=== PATIENT | female | born 1960 | race Caucasian/White ===

== ENCOUNTER 2021-04-12 18:58 | Emergency (ER) | payer OTHER, SELFPAY ==
--- NOTE | ~2021-04-12 | CT_ITS ---
EXAMINATION: NONCONTRAST HEAD CT NONCONTRAST MAXILLOFACIAL CT INDICATION INFORMATION: Headache. Facial pain. COMPARISON: MRI 07/13/2018 TECHNIQUE: Separate noncontrast CT examinations of the head and maxillofacial bones were performed. Coronal and sagittal images were created for each examination at the technologist workstation. This CT examination was performed using dose optimization techniques as appropriate, variously including the following: *Automated exposure control *Adjustment of mA and/or kV according to patient size (this includes techniques or standardized protocols for targeted exams where dose is matched to indication/reason for exam; i.e. extremities or head) *Use of iterative reconstruction technique DLP: 1370 mGy-cm FINDINGS: Head: There is no evidence of acute intracranial hemorrhage or territorial infarction. No abnormal mass effect or midline shift is seen. Joyce to white matter differentiation is well preserved. No extra-axial fluid collections are identified. No hydrocephalus. No significant volume loss. Patchy periventricular and deep white matter hypoattenuation is consistent with mild small vessel ischemic changes. No acute soft tissue abnormality. No calvarial fracture. The mastoid air cells are well aerated. Maxillofacial: Right infraorbital soft tissue swelling. No acute maxillofacial fractures are seen. The pterygoid plates are intact. Lamina papyracea are intact. Zygomatic arches are intact. The orbital rims are intact. The nasal bone is intact. The frontal, maxillary, ethmoid, and sphenoid sinuses are well aerated. The uncinate process is normal bilaterally. The infundibula and middle meati are patent. The nasal septum is midline. The mandibular heads are well-seated in the condylar fossa. The orbits demonstrate a normal appearance bilaterally. The globes are intact, and there are no suspicious findings to suggest retrobulbar hemorrhage. CT/CT facial bones w con IMPRESSION: 1. No acute intracranial finding. 2. Right infraorbital soft tissue swelling. No maxillofacial fracture.
[2021-04-12 18:58] VITALS: BP 159/77; PULSE 102; RESP 18; TEMP 37.3; O2SAT 97; BMI 38.9
--- NOTE | 2021-04-12 21:31 | ED_ITS ---
HPI - Skin/Abscess/Foreign Bdy General Chief complaint: Skin/Abscess/Foreign Body Stated complaint: abscess Time Seen by Provider: 04/12/21 21:25 History of Present Illness HPI narrative: Patient is 60-year-old female presents today with having pain and swelling to the right side of the face. No fever no chills. Positive history of having connective tissue disorder. Positive pain localized to that area for the last few days. Getting worse. Patient denies any changes in vision. No history of the same. Positive to take. Patient from home. No coughing or congestion or upper respiratory symptoms. No diaphoresis. Patient has no history of diabetes. Is not on any immunologic agents. No systemic complaints. Related Data Previous Rx's Medication Instructions Recorded clindamycin HCl 300 mg PO QID #30 cap 04/13/21 Allergies Allergy/AdvReac Type Severity Reaction Status Date / Time fentanyl [FENTANYL] Allergy Unknown UNK Verified 04/12/21 19:06 morphine [MORPHINE] Allergy Unknown UNK Verified 04/12/21 19:06 Penicillins [PENICILLINS] Allergy Unknown ANAPHYLAXIS Verified 04/12/21 19:06 PENICILLIN Allergy Unknown Anaphylaxis Uncoded 04/12/21 19:06 Review of Systems Review of Systems: Constitutional: No Weight loss, No Fever, No Chills, No Night Sweats, No Fatigue, No Malaise ENT/Mouth: No Hearing loss, No Ear Pain, No Nasal Congestion, No Sinus Pain, No Hoarseness, No sore throat, No Rhinorrhea, No Swallowing Difficulty Eyes: No Eye Pain, positive Swelling to the right maxillary area, positive Redness, No Foreign Body, No Discharge, No Vision Changes Cardiovascular: No Chest Pain, No SOB, No Dyspnea on Exertion, No Orthopnea, No Edema, No Palpitations Respiratory: No Cough, No Sputum, No Wheezing, No Smoke Exposure, No Dyspnea Gastrointestinal: No Nausea, No Vomiting, No Diarrhea, No Constipation, No abdominal Pain, No Hematochezia, No Melena Genitourinary: no irregular bleeding, No Dysuria, No Urinary Frequency, No Hematuria, No Urinary Incontinence, No Urgency, No Flank Pain, No Urinary Flow Changes, No Hesitancy Musculoskeletal: No joint pain, No Myalgias, No Joint Swelling Skin: No Skin Lesions, No rash Neuro: No Weakness, No Numbness, No Paresthesias, No Loss of Consciousness, No Dizziness, No Headache Psych: No Anxiety/Panic, No Depression, No SI/HI/AH/VH, No Social Issues, Heme/Lymph: No Bruising, No Bleeding,No Lymphadenopathy Endocrine: No Polyuria, No Polydipsia, No Temperature Intolerance [facility] Past Medical History Medical History Amyloidosis Anxiety Asthma Depression Diverticulitis GERD (gastroesophageal reflux disease) Hypothyroid Social History Social History Advance Directives: No Advance Directives Information Provided: Yes Patient : No Physical Exam Vital Signs: Vital Signs: Last Vital Signs Temp 99.5 F 04/12/21 22:34 Pulse 81 04/12/21 22:34 Resp 18 04/12/21 22:34 BP 156/76 H 04/12/21 22:34 Pulse Ox 97 04/12/21 22:34 Body Mass Index 38.9 Appearance: Alert. Oriented X3. No acute distress. Eyes: Pupils equal, round and reactive to light. ENT: Pharynx normal. Positive swelling to the right maxillary area. There is warmth to touch. There is no abscess that was palpable. Neck: Normal inspection. Neck supple. No lymph nodes noted. No crepitus CVS: Normal heart rate and rhythm. Pulses normal. Normal S1 and S2 Respiratory: No respiratory distress. Breath sounds normal. No Wheezing. No rales Abdomen: Soft and nontender. No rigidity. No distention. good BS x4 Skin: Skin warm and dry. Normal skin color. Normal skin turgor. Extremities: No lower extremity edema. Neurovascular intact to all extremities. No Lacerations. No Rash Neuro: Oriented X 3. No motor deficit. No sensory deficit. Moving all extermities. No slurred speech MDM - Skin/Abscess/Foreign Bdy MDM Narrative Medical decision making narrative: Patient's white count was 13. Electrolytes unremarkable. CT scan of the head was negative for any evidence of bleeding. CT scan of the face showed no fracture. No abscess. There is an area of swelling over the right maxillary area. Consistent with cellulitis. Patient is started on a dose of clindamycin. Patient's lactate was normal. There is no evidence for sepsis. Patient was offered admission given the location of the inflammation. Patient did not want to stay in hospital. Wants to go home. Understood the risk of infection getting worse. Wants to take oral antibiotics for now. Patient states that she will definitely come back if there is any fever that develops. Currently in stable condition with discharge patient home. Any signs of worsening infection return to the emergency department immediately Lab Data Result diagrams: 04/12/21 22:07 04/12/21 22:07 Labs: Lab Results 04/12/21 04/12/21 04/12/21 Range/Units 22:07 22:07 22:07 WBC 13.4 H (4.8-10.8) X10*3/uL RBC 4.78 (4.20-5.50) X10*6/uL Hgb 14.4 (12.0-16.0) g/dl Hct 43.3 (37-47) % MCV 90.6 (80-98) fL MCH 30.1 (27.0-33.0) pg MCHC 33.3 (31.0-35.0) g/dl RDW 13.5 (11.0-16.0) % Plt Count 199 (160-400) X10*3/uL MPV 11.3 (9.4-12.3) fL Immature Gran % (Auto) 0.4 (0.0-0.4) % Neut % (Auto) 80.3 H (45-73) % Lymph % (Auto) 11.5 L (20-40) % [place] % (Auto) 7.1 (2-11) % Eos % (Auto) 0.4 (0-4) % Baso % (Auto) 0.3 (0-2) % Lymph # (Auto) 1.5 (1.2-4.9) X10*3/uL [place] # (Auto) 1.0 (0.1-1.2) X10*3/uL Eos # (Auto) 0.1 (0.0-0.4) X10*3/uL Baso # (Auto) 0.0 (0.0-0.2) X10*3/uL Abs Immat Gran (auto) 0.05 H (0.00-0.03) X10*3/uL Absolute Neuts (auto) 10.7 H (2.0-8.3) X10*3/uL Absolute Nucleated RBC 0.000 (0.0-0.012) X10*3/uL Nucleated RBC % (auto) 0.0 (0.0-0.2) /100WBC Sodium 137 (135-145) mmol/L Potassium 4.5 (3.3-5.1) mmol/L Chloride 101 (96-108) mmol/L Carbon Dioxide 23 (22-29) mmol/L Anion Gap 18 (12-20) BUN 13 (9-16) mg/dL Creatinine 0.94 (0.5-1.4) mg/dL Estim Creat Clear Calc 75.1 Estimated GFR > 60 Random Glucose 127 H (60-115) mg/dL Lactic Acid 1.1 (0.5-2.0) mmol/L Calcium 10.4 H (8.4-10.2) mg/dL Discharge Plan Discharge Clinical Impression: Cellulitis Patient Disposition: Home, Self-Care Instructions: Cellulitis (ED) Additional Instructions: Any fever. Any dizziness nausea vomiting if you change your mind please come back to the emergency department to be admitted. Prescriptions: New clindamycin HCl 300 mg capsule 300 mg PO QID Qty: 30 RF: 0 Referrals: Eris Santoyo MD [Primary Care Provider] - 2 days (Any fever. Worsening condition return to the emergency department immediately. If he feel well still you must follow-up with your doctor. Your infection is in your face. It is very close to her brain. If there is any worsening condition please come back)
[2021-04-12] MEDS: Ketorolac Tromethamine 15 MG/ML VIAL IV (22:08)
[2021-04-12] MEDS: Metoclopramide HCl 10 MG/2 ML VIAL IVPUSH (22:09)
[2021-04-12] MEDS: diphenhydrAMINE HCL 50 MG/ML VIAL 25 MG IVPUSH (22:09)
[2021-04-12 22:16] LABS: MANUAL DIFF FLAG NO
[2021-04-12 22:17] LABS: Basophils Percent Auto 0.3 % (0-2); Eosinophils Absolute Auto 0.1 X10*3/uL (0.0-0.4); Eosinophils Percent Auto 0.4 % (0-4); Hematocrit 43.3 % (37-47); Hemoglobin 14.4 g/dl (12.0-16.0); Imm Gran Abs Auto 0.05 X10*3/uL (0.00-0.03); Imm Gran Pct Auto 0.4 % (0.0-0.4); Lymphocytes Absolute Auto 1.5 X10*3/uL (1.2-4.9); Lymphocytes Percent Auto 11.5 % (20-40); Mean Corpuscular HGB Conc 33.3 g/dl (31.0-35.0); Mean Corpuscular Hemoglobin 30.1 pg (27.0-33.0); Mean Corpuscular Volume 90.6 fL (80-98); Mean Platelet Volume 11.3 fL (9.4-12.3); Monocytes Percent Auto 7.1 % (2-11); Neutrophils Absolute Auto 10.7 X10*3/uL (2.0-8.3); Neutrophils Percent Auto 80.3 % (45-73); Platelet Count 199 X10*3/uL (160-400); Red Blood Count 4.78 X10*6/uL (4.20-5.50); Red Cell Distribution Width 13.5 % (11.0-16.0); White Blood Count 13.4 X10*3/uL (4.8-10.8)
[2021-04-12 22:34] VITALS: BP 156/76; PULSE 81; RESP 18; TEMP 37.5; O2SAT 97
[2021-04-12 22:38] LABS: Lactic Acid 1.1 mmol/L (0.5-2.0)
[2021-04-12 22:42] LABS: Anion Gap 18 (12-20); Blood Urea Nitrogen 13 mg/dL (9-16); Calcium 10.4 mg/dL (8.4-10.2); Carbon Dioxide 23 mmol/L (22-29); Chloride 101 mmol/L (96-108); Creatinine Clr Calc Pharmacy 75.1; Estimated Glomerular Filt Rate > 60; Glucose Random 127 mg/dL (60-115); Potassium 4.5 mmol/L (3.3-5.1); Sodium 137 mmol/L (135-145)
[2021-04-13] VITALS: PULSE 84; RESP 18
[2021-04-13] MEDS: iohexoL 350 MG/ML 100 ML INFUS..BTL 85 ML IV (01:08)
[2021-04-13] MEDS: Clindamycin Phosphate/D5W 600 MG/50 ML PIGGYBACK 100 MG IV (01:09)
[2021-04-13 02:00] VITALS: BP 150/71; RESP 18
== END 2021-04-13 02:06 | disposition home or self-care (01) ==
PROVIDERS: Emergency Provider Emergency Medicine Emergency Medical Services; PCP Internal Medicine
DX: L03.211 Cellulitis of face (principal); G44.309 Post-traumatic headache, unspecified, not intractable; Z79.899 Other long term (current) drug therapy
CPT/HCPCS: 36415; 70450; 70487; 80048; 83605; 85025; 87040; 87147; 87205; 96365; 96375; 99284; J1200; J1885; J2765; Q9967

== ENCOUNTER 2021-04-13 08:32 | Emergency (ER) | payer OTHER, SELFPAY ==
[2021-04-13 08:47] VITALS: BP 158/91; PULSE 80; RESP 16; TEMP 36.9; O2SAT 96; BMI 38.7
--- NOTE | 2021-04-13 08:50 | ED.GENADULT ---
HPI - General Adult General Chief complaint: Skin/Abscess/Foreign Body Stated complaint: cellulitis Time Seen by Provider: 04/13/21 08:47 Source: patient Mode of arrival: ambulatory Limitations: no limitations History of Present Illness HPI narrative: 60 y/o female returns back to the ER with concerns of worsening right facial cellulitis. She was seen here in the ED last night, diagnosed with cellulitis and started on clindamycin. She had a CT scan of her head and face that only showed some soft tissue swelling. She was discharged at 2am. When she woke up ta 7am she noticed her face was slightly more swollen and red so she decided to come back to the ER for re-evaluation. On the way here, the swelling and redness already improved. She denies fevers, chills. She has ongoing right lower dental pain and is in the process of getting a dental evaluation for extraction of rotten tooth. MD complaint: cellulitis Onset (ago): hour(s) Location: face and mouth Quality: aching Pain Consistency: intermittent Relieving factors: medication Exacerbating factors: none Associated symptoms: denies other symptoms Treatments prior to arrival: NSAID Related Data Previous Rx's Medication Instructions Recorded cefdinir 300 mg PO BID #20 cap 04/13/21 clindamycin HCl 300 mg PO QID #30 cap 04/13/21 Allergies Allergy/AdvReac Type Severity Reaction Status Date / Time fentanyl [FENTANYL] Allergy Unknown UNK Verified 04/12/21 19:06 morphine [MORPHINE] Allergy Unknown UNK Verified 04/12/21 19:06 Penicillins [PENICILLINS] Allergy Unknown ANAPHYLAXIS Verified 04/12/21 19:06 PENICILLIN Allergy Unknown Anaphylaxis Uncoded 04/12/21 19:06 Review of Systems Review of Systems: Constitutional: No Fever, No Chills ENT/Mouth: No sore throat, No Rhinorrhea, No Swallowing Difficulty, +dental pain Eyes: No Eye Pain, + Swelling, No Redness Cardiovascular: No Chest Pain, No SOB Respiratory: No Cough, No Sputum Gastrointestinal: No Nausea, No Vomiting Skin: No Skin Lesions, No rash Neuro: No Weakness, No Numbness, No Dizziness, + Headache (improving) Psych: + Anxiety/Panic PMFSH Past Medical History Attestation statement: The following information was validated with the patient. Medical History Amyloidosis Anxiety Asthma Depression Diverticulitis GERD (gastroesophageal reflux disease) Hypothyroid Social History Social History Alcohol intake: never Patient Tobacco Use Status: Never used Tobacco Use of substances other than those prescribed or required for medical reasons: No Advance Directives: Yes Advance Directives Information Provided: Yes Advance Directives on File: No Physical Exam Vital Signs: Vital Signs: Last Vital Signs Temp 98.5 F 04/13/21 08:47 Pulse 80 04/13/21 08:47 Resp 16 04/13/21 08:47 BP 158/91 H 04/13/21 08:47 Pulse Ox 96 04/13/21 08:47 Body Mass Index 38.7 Appearance: Alert. Oriented X3. No acute distress. Eyes: Pupils equal, round and reactive to light. Moderate periorbital edema with mild erythema under the eye. EOMI without discomfort on eye movement. ENT: Pharynx normal. Poor dentition, right lower molar with decay and tenderness, no fluctuance or drainage. no trismus Neck: Normal inspection. Neck supple. CVS: Normal heart rate and rhythm. Pulses normal. Respiratory: No respiratory distress. Breath sounds normal. \ Skin: Skin warm and dry. Normal skin color. Normal skin turgor. No rashes. Neuro: Oriented X 3. No motor deficit. No sensory deficit. CN II-XII grossly intact Course Course Course Narrative: 60 y/o female presenting for re-evaluation of facial cellulitis. Had CT scan 9 hours ago. Images on her cell phone were reviewed. Her facial swelling and erythema are improving. Another photo was taken for documentation and trending. Dose of clindamycin was given in the ER. Will plan to add cefdinir for double coverage of preseptal cellulitis. Patient's PCN allergy was rash as an . She is going to make an appointment with a dentist today. She is stable for discharge and will f/u with her PCP as soon as possible. Discharge Plan Discharge Clinical Impression: Cellulitis Qualifiers: Site of cellulitis: face Qualified Code(s): L03.211 - Cellulitis of face Patient Disposition: Home, Self-Care Instructions: Periorbital Cellulitis in Adults (ED) Additional Instructions: Your cellulitis is improving. You were given another dose of Clindamycin in the ER today - take your next dose in 6 hours. Start taking cefdinir this morning. This was sent to your pharmacy. If you notice worsening swelling, redness or pain come back to the ER right away. Follow up with your doctor as soon as possible. Prescriptions: New cefdinir 300 mg capsule 300 mg PO BID Qty: 20 RF: 0 No Action clindamycin HCl 300 mg capsule 300 mg PO QID Qty: 30 RF: 0 Discharge Date/Time: 04/13/21 09:12
--- NOTE | 2021-04-13 09:11 | PC.NURSE ---
DIscharge instructions given to patient who verbalized understanding and denies any questions. Pt is ambulatory to exit in no distress
== END 2021-04-13 09:12 | disposition home or self-care (01) ==
PROVIDERS: Emergency Provider Emergency Medicine; PCP Internal Medicine
DX: L03.211 Cellulitis of face (principal); K08.89 Other specified disorders of teeth and supporting structures
CPT/HCPCS: 99283; 99284

== ENCOUNTER 2022-11-26 12:36 | Outpatient (REF) | payer MEDICARE, SELFPAY ==
--- NOTE | ~2022-11-26 | XR_ITS ---
EXAMINATION: XR CHEST CLINICAL INFORMATION: Wheezing COMPARISON: None TECHNIQUE: 2 views of the chest were obtained. FINDINGS: There is mild coarsening bronchiolar markings which could be related to asthma bronchitis. There is no hyperinflation or airspace consolidation or groundglass opacity. The costophrenic sulci are clear. The heart is normal in size. The vascularity is normal. The hilar and mediastinal contours and bony structures are unremarkable. XR/XR chest 2V IMPRESSION: 1. Nonspecific mild coarsening bronchiolar markings which could be related to asthma or bronchitis. 2. No hyperinflation, airspace consolidation, or effusion.
[2022-11-26 12:59] LABS: MANUAL DIFF FLAG NO
[2022-11-26 13:26] LABS: Basophils Percent Auto 0.3 % (0-2); Eosinophils Absolute Auto 0.2 X10*3/uL (0.0-0.4); Eosinophils Percent Auto 2.4 % (0-4); Hematocrit 39.2 % (37.0-47.0); Hemoglobin 12.9 g/dl (12.0-16.0); Imm Gran Abs Auto 0.02 X10*3/uL (0.00-0.03); Imm Gran Pct Auto 0.3 % (0.0-0.4); Lymphocytes Absolute Auto 1.3 X10*3/uL (1.2-4.9); Lymphocytes Percent Auto 20.1 % (20-40); Mean Corpuscular HGB Conc 32.9 g/dl (31.0-35.0); Mean Corpuscular Hemoglobin 29.5 pg (27.0-33.0); Mean Corpuscular Volume 89.7 fL (80.0-98.0); Mean Platelet Volume 11.8 fL (9.4-12.3); Monocytes Absolute Auto 0.4 X10*3/uL (0.1-1.2); Monocytes Percent Auto 6.1 % (2-11); Neutrophils Absolute Auto 4.4 x10*3/uL (2.0-8.3); Neutrophils Percent Auto 70.8 % (45-73); Platelet Count 130 X10*3/uL (160-400); Red Blood Count 4.37 X10*6/uL (4.20-5.50); White Blood Count 6.2 X10*3/uL (4.8-10.8)
[2022-11-26 14:12] LABS: Alanine Aminotransferase 76 U/L (0-31); Albumin Level 4.4 g/dL (3.5-5.0); Alkaline Phosphatase 148 U/L (39-117); Anion Gap 12 (12-20); Aspartate Amino Transferase 53 U/L (5-31); Bilirubin Total 0.4 mg/dL (0.0-1.0); Blood Urea Nitrogen 14 mg/dL (9-16); C Reactive Protein 0.78 mg/dL (< or = 0.50); Calcium 10.1 mg/dL (8.4-10.2); Carbon Dioxide 30 mmol/L (22-29); Chloride 104 mmol/L (96-108); Cholesterol 281 mg/dL; Estimated Glomerular Filt Rate 57; Glucose Fasting 106 mg/dL (60-99); HDL Cholesterol 45 mg/dL; LDL Cholesterol Calculated 201 mg/dl; Potassium 5.6 mmol/L (3.3-5.1); Sodium 140 mmol/L (135-145); Total Protein 7.4 g/dL (6.5-8.0); Triglycerides 178 mg/dL
[2022-11-26 14:22] LABS: Estimated Average Glucose 126 mg/dL
[2022-11-26 14:30] LABS: Free T4 (Free Thyroxine) 0.78 ng/dL (0.71-1.85); Thyroid Stimulating Hormone 2.95 uIU/mL (0.32-4.0)
[2022-11-28 12:24] LABS: Anti Nuclear Antibody Pattern Nuclear, Homogeneous; Anti Nuclear Antibody Screen POSITIVE (NEGATIVE)
== END 2022-11-26 12:37 | disposition home or self-care (01) ==
LOC: HO.XRAY 12:36
PROVIDERS: PCP Internal Medicine; Visit Provider Internal Medicine
DX: Z00.00 Encounter for general adult medical examination without abnormal findings (principal); E03.9 Hypothyroidism, unspecified
CPT/HCPCS: 36415; 71046; 80053; 80061; 83036; 84439; 84443; 85025; 86038; 86039; 86140

== ENCOUNTER 2023-01-02 12:12 | Outpatient (REF) | payer MEDICARE, SELFPAY ==
[2023-01-02 13:50] LABS: Alanine Aminotransferase 59 U/L (0-31); Albumin Level 4.4 g/dL (3.5-5.0); Alkaline Phosphatase 139 U/L (39-117); Aspartate Amino Transferase 48 U/L (5-31); Bilirubin Direct < 0.2 mg/dL (0.0-0.5); Bilirubin Total 0.3 mg/dL (0.0-1.0); Total Protein 7.2 g/dL (6.5-8.0)
== END 2023-01-02 12:13 | disposition home or self-care (01) ==
LOC: HO.10HDL 12:12
PROVIDERS: Visit Provider Internal Medicine
DX: R79.89 Other specified abnormal findings of blood chemistry (principal)
CPT/HCPCS: 36415; 80076

== ENCOUNTER 2023-11-05 12:28 | Outpatient (REF) | payer MEDICARE, MEDICAID, SELFPAY ==
[2023-11-05 13:56] LABS: Alanine Aminotransferase 48 U/L (0-31); Albumin Level 4.5 g/dL (3.5-5.0); Alkaline Phosphatase 130 U/L (39-117); Anion Gap 12 (12-20); Aspartate Amino Transferase 37 U/L (5-31); Bilirubin Total 0.4 mg/dL (0.0-1.0); Blood Urea Nitrogen 11 mg/dL (9-16); Calcium 9.9 mg/dL (8.4-10.2); Carbon Dioxide 27 mmol/L (22-29); Chloride 109 mmol/L (96-108); Cholesterol 206 mg/dL (<200); Estimated Glomerular Filt Rate 50; Glucose Random 100 mg/dL (60-115); HDL Cholesterol 50 mg/dL (>40); LDL Cholesterol Calculated 128 mg/dL (<100); Potassium 5.4 mmol/L (3.3-5.1); Sodium 143 mmol/L (135-145); Total Protein 7.6 g/dL (6.5-8.0); Triglycerides 144 mg/dL (<150)
[2023-11-05 14:05] LABS: Vitamin B12 778 pg/mL (200-900)
[2023-11-05 14:18] LABS: Free T4 (Free Thyroxine) 0.81 ng/dL (0.71-1.85); Thyroid Stimulating Hormone 4.92 uIU/mL (0.32-4.0)
[2023-11-05 14:45] LABS: Appearance Urine Clear; Color Urine Yellow; Glucose Urine UA Negative (Negative); Leukocyte Esterase Urine Moderate (2+) (Negative); Nitrite Urine Negative (Negative); Specific Gravity - Urine 1.025 (1.005-1.025); UMIC TRIGGER UACC YES; Urine Blood Negative (Negative); Urine Ketones Negative (Negative); Urine Protein Negative (Neg-Trace)
[2023-11-05 14:51] LABS: Bacteria Urine None Seen (None Seen); Hyaline Casts Urine 0-2 /LPF (0-2); RBC Urine 0-2 /HPF (0-2); UACC Culture Trigger YES
== END 2023-11-05 12:29 | disposition home or self-care (01) ==
LOC: HO.LAB 12:28
PROVIDERS: PCP Internal Medicine; Visit Provider Internal Medicine
DX: E78.00 Pure hypercholesterolemia, unspecified (principal); R79.89 Other specified abnormal findings of blood chemistry; E03.9 Hypothyroidism, unspecified; R82.90 Unspecified abnormal findings in urine
CPT/HCPCS: 36415; 80053; 80061; 81001; 81003; 82607; 84439; 84443; 87086

== ENCOUNTER 2023-12-08 14:00 | Outpatient (REF) | payer MEDICARE, MEDICAID, SELFPAY ==
[2023-12-08 14:12] LABS: MANUAL DIFF FLAG NO
[2023-12-08 14:17] LABS: Basophils Percent Auto 0.3 % (0-2); Eosinophils Absolute Auto 0.2 X10*3/uL (0.0-0.4); Eosinophils Percent Auto 2.2 % (0-4); Hematocrit 42.1 % (37.0-47.0); Hemoglobin 13.8 g/dl (12.0-16.0); Imm Gran Abs Auto 0.02 X10*3/uL (0.00-0.03); Imm Gran Pct Auto 0.3 % (0.0-0.4); Lymphocytes Absolute Auto 1.6 X10*3/uL (1.2-4.9); Lymphocytes Percent Auto 23.6 % (20-40); Mean Corpuscular HGB Conc 32.8 g/dl (31.0-35.0); Mean Corpuscular Hemoglobin 29.7 pg (27.0-33.0); Mean Corpuscular Volume 90.7 fL (80.0-98.0); Monocytes Absolute Auto 0.4 X10*3/uL (0.1-1.2); Monocytes Percent Auto 6.5 % (2-11); Neutrophils Absolute Auto 4.6 x10*3/uL (2.0-8.3); Neutrophils Percent Auto 67.1 % (45-73); Platelet Count 160 X10*3/uL (160-400); Red Blood Count 4.64 X10*6/uL (4.20-5.50); Red Cell Distribution Width 13.1 % (11.0-16.0); White Blood Count 6.8 X10*3/uL (4.8-10.8)
[2023-12-08 14:22] LABS: D Dimer High Sensitivity < 150 NG/ML
[2023-12-08 15:35] LABS: B Type Natriuretic Peptide 26 pg/mL (<100)
[2023-12-08 15:37] LABS: Alanine Aminotransferase 58 U/L (0-31); Albumin Level 4.7 g/dL (3.5-5.0); Alkaline Phosphatase 135 U/L (39-117); Anion Gap 14 (12-20); Aspartate Amino Transferase 40 U/L (5-31); Bilirubin Total 0.5 mg/dL (0.0-1.0); Blood Urea Nitrogen 14 mg/dL (9-16); C Reactive Protein 0.52 mg/dL (< or = 0.50); Calcium 10.2 mg/dL (8.4-10.2); Carbon Dioxide 29 mmol/L (22-29); Chloride 103 mmol/L (96-108); Estimated Glomerular Filt Rate 52; Glucose Random 87 mg/dL (60-115); Lipase 27 U/L (8-78); Potassium 4.3 mmol/L (3.3-5.1); Sodium 142 mmol/L (135-145); Total Protein 8.3 g/dL (6.5-8.0)
[2023-12-08 15:40] LABS: Free T4 (Free Thyroxine) 0.91 ng/dL (0.71-1.85); Thyroid Stimulating Hormone 1.82 uIU/mL (0.32-4.0)
== END 2023-12-08 14:01 | disposition home or self-care (01) ==
LOC: HO.LAB 14:00
PROVIDERS: PCP Internal Medicine; Visit Provider Internal Medicine
DX: R06.02 Shortness of breath (principal); E03.9 Hypothyroidism, unspecified; R10.9 Unspecified abdominal pain
CPT/HCPCS: 36415; 80053; 82550; 83690; 83880; 84439; 84443; 85025; 85379; 86140

== ENCOUNTER 2024-01-01 13:51 | Outpatient (REF) | payer MEDICARE, MEDICAID, SELFPAY ==
--- NOTE | ~2024-01-01 | US_ITS ---
EXAMINATION: US PELVIS CLINICAL INFORMATION: Right ovarian cyst. COMPARISON: None available. TECHNIQUE: Ultrasound of the pelvis is performed using both transabdominal and transvaginal transducers along with Doppler. Transvaginal imaging is performed due to inadequate visualization transabdominally. FINDINGS: Uterus: The uterus is retroverted and measures 5.2 x 3.3 x 4.2 cm. The double wall endometrial thickness is 2 mm. The uterus is smooth in contour. There are scattered myometrial calcifications, possibly related to minimal fibroids or a sequela of prior inflammation/infection. No visible fibroid. Adnexa: Both ovaries are visualized. There is normal color flow to the adnexa. There is no ovarian torsion. There is no pelvic ascites or fluid collection. Right ovary measures 6.8 x 5.2 x 3.4 cm, volume 63.0 mL. The right ovary contains 3.7 x 3.3 x 3.9 cm, 1.8 x 1.2 x 2.1 cm and 1.4 x 1.3 x 1.2 cm adjacent cysts versus an aggregate complex cyst. The second of these cystic components contains a possible 3 mm mural nodule (17/41). Left ovary measures 1.9 x 1.3 x 1.1 cm, volume 1.4 mL. US/US pelvic and transvaginal IMPRESSION: Multiple adjacent simple right ovarian cysts are seen versus an aggregate complex cyst, with septations and a possible mural nodule. As a precaution, repeat pelvic ultrasound examination is recommended in 6-12 weeks to ensure regression/resolution and exclude the possibility of underlying neoplasm.
== END 2024-01-01 13:52 | disposition home or self-care (01) ==
LOC: HO.US 13:51
PROVIDERS: PCP Internal Medicine; Visit Provider Internal Medicine
DX: N83.291 Other ovarian cyst, right side (principal)
CPT/HCPCS: 76830; 76856

== ENCOUNTER 2024-02-16 14:58 | Outpatient (AMB) | payer MEDICARE, MEDICAID, SELFPAY ==
--- NOTE | 2024-02-16 15:00 | MHC.OFFVIS ---
Intake Vital Signs 02/16/24 15:03 Height 5 ft 5 in Weight 240 lb 4.862 oz BMI 40.0 BP 180/66 H Blood Pressure Location Lt brachial Position Sitting Pulse 96 Intake Visit Reasons: CURER ACID DRUM/Dr. Santoyo/Shortness of breath Intake Note: NPV w/ EKG Underwriting Support Specialist Required: No Accompanied by: Self / Same As Patient Allergies fentanyl [FENTANYL] Allergy (Unknown, Verified 02/16/24 15:03) UNK morphine [MORPHINE] Allergy (Unknown, Verified 02/16/24 15:03) UNK Penicillins [PENICILLINS] Allergy (Unknown, Verified 02/16/24 15:03) ANAPHYLAXIS PENICILLIN Allergy (Unknown, Uncoded 02/16/24 15:03) Anaphylaxis Medication List - Last Reconciled 02/16/24 by Clark Dumont MD alprazolam 1 mg PO DAILY PRN gabapentin 100 mg PO TID levothyroxine 100 mcg PO DAILY meloxicam 15 mg PO DAILY pravastatin 20 mg PO DAILY sertraline 100 mg PO BID HPI HPI Comments History of Present Illness Details Pamela Mayo is here for consultation regarding shortness of breath. She states that she has been short of breath for quite some time, going back years but lately it has been much worse than usual. Even when she walks very short distances, just a few steps, she can feel short of breath. Sometimes she feels as though she is wheezing. Even bending down, makes her short of breath. No anginal type chest pains. No known coronary disease myocardial infarction. 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 Otherwise, she does have a history of asthma. [facility] Medical History Amyloidosis Anxiety Asthma Depression Diverticulitis GERD (gastroesophageal reflux disease) Hypothyroid Family History (Updated 02/16/24 @ 15:17 by Clark Dumont MD) Mother History of heart attack Brother Pacemaker Social History Alcohol intake: never Patient Tobacco Use Status: Never used Tobacco Review of Systems Const Denies chills, Denies daytime sleepiness, Denies fatigue, Denies fever(s), Denies frequent falls, Denies night sweats, Denies snoring, Denies weakness, Denies weight gain and Denies weight loss Eyes Denies loss of vision ENT Denies dizziness and Denies hearing loss Card Denies chest pain, Denies chest pain with activity, Denies syncope, Denies rapid heart rate, Denies edema, Denies claudication, Denies leg edema, Denies lightheadedness, Denies palpitations, Reports dyspnea, Reports dyspnea on exertion and Reports orthopnea Resp Denies cough, Denies excessive phlegm production, Reports dyspnea, Reports dyspnea on exertion, Denies snoring and Denies wheezing GI Denies abdominal pain, Denies hematochezia, Denies change in bowel habits, Denies change in stool character, Denies heartburn, Denies nausea and Denies vomiting Denies hematuria, Denies urinary frequency and Denies dysuria Musc Denies arthralgias, Denies muscle weakness, Denies numbness and Denies tingling Skin/Breast Denies nail changes and Denies rash Neuro Denies Abnormal speech present, Denies dizziness, Denies syncope, Denies frequent falls, Denies loss of vision, Denies memory loss, Denies numbness, Denies tingling and Denies weakness Psych Denies depression and Denies memory loss Endo Denies fatigue and Denies palpitations Aller/Immun Denies wheezing Physical Exam Vital Signs: Last Vital Signs Pulse 96 02/16/24 15:03 BP 180/66 H 02/16/24 15:03 BMI result Body Mass Index 40.0 Const General: comfortable and no acute distress Orientation/consciousness: patient oriented x3 HEENT Other: Unremarkable Head: Yes normal to inspection Neck Neck: Yes normal visual inspection Chest Chest palpation & inspection: normal inspection of the chest Resp Auscultation: clear to auscultation bilaterally Cardio Palpation: normal PMI Heart sounds: S1 normal heart sound present, S2 normal heart sound present, no gallops, no murmurs and no rubs GI Palpation (GI): Soft to palpation Back/Spine/Pelvis Other: unremarkable Skin General skin exam: no rashes or lesions noted Neuro General: patient oriented x3 Speech: No Abnormal speech present Extrem General: Yes normal to inspection Psych Mental Status: mental status grossly normal Office Procedures EKG Details: EKG with sinus rhythm at 96/Min; no significant ST-T changes and otherwise unremarkable[place] [id number], Complete Assessment & Plan Assessment & Plan (1) Shortness of breath: Code(s): R06.02 - Shortness of breath (2) Elevated blood pressure reading without diagnosis of hypertension: Code(s): R03.0 - Elevated blood-pressure reading, without diagnosis of hypertension Plan On clinical exam, no obvious murmurs but difficult to assess because of the way she is breathing/over breathing. She appears short of breath just sitting in chair but not in distress. A recent cardiac BNP is only 26, well within normal limits. Overall, symptoms possibly more pulmonary than cardiac but need to have a comprehensive assessment. We will start with an echocardiogram, chest CT scan and PFTs. May review the above and then plan further care. Blood pressure is high today but she absolutely denies any history of hypertension. She states his generally well within normal range. Advised to do some home blood pressures and get back to us in the next few days. If it is still high, may need meds. She agrees with that. Orders: Orders CA echo transthoracic complete Today R06.02 - Shortness of breath CT chest wo IV con Today R06.02 - Shortness of breath PFT pulmonary function test Today R06.02 - Shortness of breath Coding Level of Care Code New Pt Level 4 (12512) Diagnoses Shortness of breath R06.02 Elevated blood pressure reading without diagnosis of hypertension R03.0 CPT Codes EKG - CPT: 52462-[id number], Complete ([id number])
[2024-02-16 15:03] VITALS: BP 180/66; PULSE 96; BMI 40.0
== END 2024-02-16 15:31 | disposition home or self-care (01) ==
PROVIDERS: PCP Internal Medicine; Visit Provider Internal Medicine
DX: R06.02 Shortness of breath (principal); R03.0 Elevated blood-pressure reading, without diagnosis of hypertension
CPT/HCPCS: 93010; 99204

== ENCOUNTER → 2024-02-16 14:58 | Outpatient (BNVA) | payer MEDICARE, OTHER, SELFPAY | PROVIDERS: PCP Internal Medicine; Visit Provider Internal Medicine | DX: R06.02 Shortness of breath (principal); R03.0 Elevated blood-pressure reading, without diagnosis of hypertension; J45.909 Unspecified asthma, uncomplicated | CPT/HCPCS: 93005; 99202 ==

== ENCOUNTER 2024-02-19 10:47 | Outpatient (REF) | payer MEDICARE, MEDICAID, SELFPAY ==
[2024-02-19 10:42] VITALS: PULSE 84; RESP 16; O2SAT 98
--- NOTE | 2024-02-19 16:37 | PFT_ITS ---
Indication: Dyspnea Spirometry [FEV1 to FVC 79%; FEV1 2.05 L; FVC 2.6 L. No significant response to bronchodilators noted. Maximum voluntary ventilation 63% predicted] Lung Volumes [Total lung capacity 76% predicted; expiratory reserve volume 33% predicted] Diffusion Capacity [Diffusing capacity 100% predicted] Comparisons [None] Interpretation [No obstructive ventilatory defects. No significant response to bronchodilators noted. There is a mild decrease in maximum voluntary ventilation secondary to likely deconditioning. There has a mild restrictive ventilatory defect likely due to an elevated BMI. Can not rule out occult interstitial lung conditions. Diffusing capacity is completely normal. Clinical correlation warranted. MTDD
== END 2024-02-19 10:48 | disposition home or self-care (01) ==
LOC: HO.RESP 10:47
PROVIDERS: PCP Internal Medicine; Visit Provider Internal Medicine
DX: R06.02 Shortness of breath (principal)
CPT/HCPCS: 94010; 94640; 94727; 94729

== ENCOUNTER → 2024-02-19 16:37 | Outpatient (BNV) | payer MEDICARE, MEDICAID, SELFPAY | PROVIDERS: PCP Internal Medicine; Visit Provider Hospitalist | DX: R06.02 Shortness of breath (principal) | CPT/HCPCS: 94060; 94727; 94729 ==

== ENCOUNTER → 2024-03-03 09:49 | Outpatient (REF) | payer MEDICARE, MEDICAID, SELFPAY ==
--- NOTE | 2024-03-03 09:52 | CA_ITS ---
Transthoracic Echocardiogram Patient (Last, First, Middle): Pamela Ordoñez Marie Gender: Female Date of : 1960 Age: 63 Procedure Date: 03/03/2024 Procedure Type: Transthoracic Echocardiogram Location: OP Height: 165.1 cm Weight: 108.86 kg BSA: 2.14 m2 Heart Rate: 79 bpm BP: 172 / 84 mmHg Pattern Fitter: SB Referring MD: Clark Dumont MD Symptoms: R06.02 - Shortness of breath Study Quality: Adequate w contrast ECG Rhythm: Sinus Conclusions: - The left ventricular systolic function is hyperdynamic. The visually estimated ejection fraction is >70%. - No obvious valvular pathology seen on this study. Findings Procedure Information Contrast agent, definity, is being given per protocol without apparent complications. The quality of the study was technically difficult. The study quality is limited by patients body habitus. Left Ventricle Normal left ventricular cavity size. There is normal left ventricular wall thickness. The left ventricular systolic function is hyperdynamic. The visually estimated ejection fraction is >70%. There is no evidence of regional wall motion abnormalities. Diastolic function is normal for age. Right Ventricle Normal right ventricular cavity size and systolic function. Atria Both atria are normal in size. Aortic Valve The aortic valve was not well visualized. There is no aortic valve stenosis. There is no aortic valve regurgitation. Mitral Valve The mitral valve appears normal. There is no mitral valve regurgitation. There is no mitral valve stenosis. Pulmonic Valve The pulmonic valve is likely normal. Tricuspid Valve There is no tricuspid valve regurgitation. Tricuspid regurgitation envelope is inadequate for calculation of right ventricular systolic pressure. Great Vessels The asc aorta is normal in size. Venous The inferior vena cava was not well visualized. Pericardium/Pleural There is no evidence of pericardial effusion. Prior Study Comparison No prior study available for comparison. Recommendations, Care & Conclusions No obvious valvular pathology seen on this study. Measurements 2D Linear Measurements IVSd: 0.79 0.6-0.9/0.6-1.0 cm LVIDd: 4.26 3.9-5.3/4.2-5.9 cm LVIDd Index: 1.99 2.4-3.2/2.2-3.1 cm/m2 LVPWd: 0.96 0.7-1.1 cm LA Diam: 2.80 2.7-3.8/3.0-4.0 cm LAIDs Index: 1.31 1.5-2.3 cm/m2 LV Mass: 145.36 67-162/88-224 g LV Mass Index: 67.93 43-95/49-115 g/m2 LVOT Diam: 2.10 3.0+(-)1.3 cm 2D Systolic Function EF 4C: 79.40 >55% EF 2C: 70.60 >55% EF BiP: 76.30 >55% Mitral Valve MV Pk E: 0.93 MV PK A: 0.77 MV Decel Time: 216.00 E/A: 1.20 E'Lateral: 8.38 E'Medial: 7.18 E/E' Med: 13.00 E/E' Lat: 11.10 PHT: 63.00 MVA PHT: 3.49 Decel [place]: 4.33 Aortic Valve AoV Pk Norris: 1.60 AoV Pk Grad: 10.00 [place]: 2.33 LVOT LVOT Pk Norris: 1.38 LVOT Mn Norris: 0.90 LVOT VTI: 0.28 LVOT Pk Grad: 8.00 LVOT Mn Grad: 4.00 LVOT Diam: 2.10 LVOT Area: 3.46 Diastolic Function MV Pk E: 0.93 MV Pk A: 0.77 E/A: 1.20 E'Medial: 7.18 E/E' Med: 13.00 E' Laterial: 8.38 E/E' Lat: 11.10 Right Ventricle TAPSE (mm): 21.40 TVS' Norris: 12.90 Tricuspid Valve RA Press: 3.00 Great Vessels Aorta Sinus of Valsalva: 2.80 2.0-3.5 cm Ao Asc: 2.90 2.1-3.4 cm Pulmonary Veins Pulm Vein S/D 1.10 Pulmonary Valve PV Pk Norris: 0.93 Peak PV Grad: 3.00 Updated in Other Vendor System with Status of Final Clark Dumont MD electronically signed on 03/05/2024 8:53:07 AM with status of Final
== END ==
LOC: HO.CARD 09:49
PROVIDERS: PCP Internal Medicine; Visit Provider Internal Medicine
DX: R06.02 Shortness of breath (principal)
CPT/HCPCS: 93306; Q9957

== ENCOUNTER → 2024-03-03 09:52 | Outpatient (BNV) | payer OTHER, SELFPAY | PROVIDERS: PCP Internal Medicine; Visit Provider Internal Medicine | DX: R06.02 Shortness of breath (principal) | CPT/HCPCS: 93306 ==

== ENCOUNTER 2024-03-05 14:47 | Outpatient (REF) | payer MEDICARE, OTHER, SELFPAY ==
--- NOTE | ~2024-03-05 | US_ITS ---
EXAMINATION: US PELVIS CLINICAL INFORMATION: Ovarian cyst Postmenopausal COMPARISON: Pelvic ultrasound 01/01/2024 TECHNIQUE: Ultrasound of the pelvis is performed using both transabdominal and transvaginal transducers along with Doppler. Transvaginal imaging is performed due to inadequate visualization transabdominally. FINDINGS: Uterus: The uterus is retroverted and measures 6.4 x 3.4 x 4.0 cm. No focal fibroid The endometrial thickness is 0.5 cm. Adnexa: Both ovaries are visualized. There is normal color flow to the adnexa. There is no ovarian torsion. There is no pelvic ascites or fluid collection. Right ovary measures 7.3 x 3.4 x 4.9 cm. Volume 64 mL. In the right adnexa, there is a large cystic lesion with a tubular component consistent with a hydrosalpinx, measures 4.4 x 2.1 x 3.9 cm. It is likely that what is measured as the right ovary may actually be part of the hydrosalpinx with the right ovary not being seen. Left ovary measures 2.6 x 1.1 x 1.4 cm. Volume 2.1 mL. US/US pelvic and transvaginal IMPRESSION: 1. Right hydrosalpinx. 2. Normal uterus and left ovary. If of continued clinical concern, MRI scan of the pelvis could be obtained.
== END 2024-03-05 14:48 | disposition home or self-care (01) ==
LOC: HO.US 14:47
PROVIDERS: PCP Internal Medicine; Visit Provider Internal Medicine
DX: N83.299 Other ovarian cyst, unspecified side (principal)
CPT/HCPCS: 76830; 76856

== ENCOUNTER 2024-03-19 07:19 | Outpatient (REF) | payer MEDICARE, OTHER, SELFPAY ==
--- NOTE | ~2024-03-19 | CT_ITS ---
EXAMINATION: CT CHEST WITHOUT CONTRAST CLINICAL INFORMATION: Shortness of breath. COMPARISON: Chest radiograph dated 11/26/2022. TECHNIQUE: Multidetector volumetric CT imaging of the chest was done. Axial MIP volume rendering provided. Sagittal and coronal reformatted images were obtained. This CT examination was performed using dose optimization techniques as appropriate, variously including the following: *Automated exposure control *Adjustment of mA and/or kV according to patient size (this includes techniques or standardized protocols for targeted exams where dose is matched to indication/reason for exam; i.e. extremities or head) *Use of iterative reconstruction technique DLP: 300 mGy-cm FINDINGS: COLOR EXPERT: The lungs are symmetrically well-expanded and grossly clear. LUNGS: The lungs are clear with no evidence of inflammation or noncalcified nodules. A tiny benign, calcified granuloma is seen within the apicoposterior segment of the left upper lobe laterally. There is a tiny focus of linear scar/subsegmental atelectasis within the lingula, without associated focal airway obstruction. MEDIASTINUM: The thyroid is unremarkable. There is no thoracic aortic aneurysm. There are mild atherosclerotic calcifications of the great vessel origins and thoracic aorta. No mediastinal or hilar lymphadenopathy is seen. normal. CORONARY ARTERY CALCIFICATION: Very mild. PLEURA: There is no pleural effusion. No pleural mass or thickening. AXILLA: No lymphadenopathy. UPPER ABDOMEN: Layering gallstones are suspected, incompletely covered in the [id number]. OSSEOUS STRUCTURES: There is multi-level mild lower cervical and thoracic spondylosis. No acute or aggressive osseous finding is noted. CT/CT chest wo IV con IMPRESSION: 1. Unremarkable examination, without noncalcified lung nodule, mass, infiltrate or groundglass opacity. 2. There is no thoracic lymphadenopathy or pleural effusion. 3. No acute or aggressive osseous finding is noted. 4. Layering gallstones are suspected, which can be more fully evaluated with dedicated abdominal ultrasound, if clinically indicated. Fleischner guidelines were followed.
== END 2024-03-19 07:20 | disposition home or self-care (01) ==
LOC: HO.CT 07:19
PROVIDERS: PCP Internal Medicine; Visit Provider Internal Medicine
DX: R06.02 Shortness of breath (principal)
CPT/HCPCS: 71250

== ENCOUNTER 2024-04-27 14:43 | Outpatient (AMB) | payer MEDICARE, SELFPAY ==
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
[2024-04-27 14:50] VITALS: BP 144/64; BMI 39.8
== END 2024-04-27 15:51 | disposition home or self-care (01) ==
PROVIDERS: PCP Internal Medicine; Visit Provider Advanced Practice Midwife
DX: R93.5 Abnormal findings on diagnostic imaging of other abdominal regions, including retroperitoneum (principal); R10.2 Pelvic and perineal pain; N70.11 Chronic salpingitis; R35.0 Frequency of micturition; R32 Unspecified urinary incontinence; R93.89 Abnormal findings on diagnostic imaging of other specified body structures
CPT/HCPCS: 99204

== ENCOUNTER 2024-04-27 14:43 | Outpatient (REF) | payer MEDICARE, MEDICAID, SELFPAY ==
[2024-05-05 20:44] LABS: HPV mRNA E6/E7 rflx Not Detected (Not Detected)
== END 2024-04-27 14:44 | disposition home or self-care (01) ==
LOC: HO.LNP 14:43
PROVIDERS: PCP Internal Medicine; Visit Provider Advanced Practice Midwife
DX: R10.2 Pelvic and perineal pain (principal); R93.5 Abnormal findings on diagnostic imaging of other abdominal regions, including retroperitoneum; N70.11 Chronic salpingitis; R35.0 Frequency of micturition; R32 Unspecified urinary incontinence; R93.89 Abnormal findings on diagnostic imaging of other specified body structures; M54.50 Low back pain, unspecified; Z87.448 Personal history of other diseases of urinary system
CPT/HCPCS: 87624; 88142; 99202

== ENCOUNTER 2024-05-13 13:54 | Outpatient (AMB) | payer MEDICARE, SELFPAY ==
[2024-05-13 13:55] VITALS: BP 140/70; PULSE 94; BMI 39.7
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
== END 2024-05-13 14:17 | disposition home or self-care (01) ==
PROVIDERS: PCP Internal Medicine; Visit Provider Internal Medicine
DX: R06.02 Shortness of breath (principal); I10 Essential (primary) hypertension
CPT/HCPCS: 99214

== ENCOUNTER 2024-05-13 13:54 | Outpatient (REF) | payer MEDICARE, SELFPAY ==
[2024-05-13 15:32] LABS: Anion Gap 14 (12-20); Blood Urea Nitrogen 17 mg/dL (9-16); Calcium 9.9 mg/dL (8.4-10.2); Carbon Dioxide 24 mmol/L (22-29); Chloride 106 mmol/L (96-108); Estimated Glomerular Filt Rate 41; Glucose Random 92 mg/dL (60-115); Potassium 5.3 mmol/L (3.3-5.1); Sodium 139 mmol/L (135-145)
== END 2024-05-13 13:55 | disposition home or self-care (01) ==
LOC: HO.LAB 13:54
PROVIDERS: PCP Internal Medicine; Visit Provider Internal Medicine
DX: R06.02 Shortness of breath (principal); I10 Essential (primary) hypertension; G47.33 Obstructive sleep apnea (adult) (pediatric)
CPT/HCPCS: 36415; 80048; 99212

== ENCOUNTER 2024-05-18 14:45 | Outpatient (AMB) | payer MEDICARE, SELFPAY ==
[2024-05-18 14:57] VITALS: PULSE 87; O2SAT 98; BMI 39.9
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
== END 2024-05-18 15:33 | disposition home or self-care (01) ==
PROVIDERS: PCP Internal Medicine; Visit Provider Hospitalist
DX: E85.9 Amyloidosis, unspecified (principal); J38.7 Other diseases of larynx; J45.40 Moderate persistent asthma, uncomplicated; G47.33 Obstructive sleep apnea (adult) (pediatric); K21.9 Gastro-esophageal reflux disease without esophagitis
CPT/HCPCS: 99214

== ENCOUNTER → 2024-05-18 14:45 | Outpatient (BNVA) | payer MEDICARE, SELFPAY | PROVIDERS: PCP Internal Medicine; Visit Provider Hospitalist | DX: J38.7 Other diseases of larynx (principal); J45.40 Moderate persistent asthma, uncomplicated; G47.33 Obstructive sleep apnea (adult) (pediatric); Z79.899 Other long term (current) drug therapy | CPT/HCPCS: 99212 ==

== ENCOUNTER 2024-06-08 14:45 | Outpatient (REF) | payer MEDICARE, SELFPAY ==
--- NOTE | ~2024-06-08 | MR_ITS ---
EXAMINATION: MR PELVIS WITHOUT AND WITH CONTRAST CLINICAL INFORMATION: Right fallopian tube expanded in size COMPARISON: Pelvic ultrasound 03/05/2024 TECHNIQUE: Multiplanar multisequence MRI of the pelvis was performed before and after intravenous administration of 10 mL of Gadavist. FINDINGS: The uterus is retroverted and measures approximately 6.5 x 4 x 4.5 cm in the sagittal, AP and transverse dimensions. The junctional zone appears intact. The endometrial thickness is within normal limits measuring 0.6 cm. No focal myometrial lesions. The left ovary appears unremarkable. The right ovary is better delineated on prior ultrasound. There is a tubular nonenhancing cystic structure with incomplete septations in the right adnexa measuring approximately 5.6 x 3.6 x 3.8 cm . No definite enhancing solid component. Included bowel loops are nondilated. Extensive sigmoid colonic diverticulosis. The urinary bladder is partially distended with mild diffuse wall thickening. No enlarged pelvic lymph nodes. Degenerative disease involving the visualized spine. MR/MR pelvis wo/w con IMPRESSION: Approximately 5.6 cm tubular non-enhancing cystic structure with incomplete septations in the right adnexa may represent hydrosalpinx and correlating with findings of prior pelvic ultrasound. Gynecology consultation and follow-up as clinically indicated to document stability. Electronically signed by: Matias Rahman MD 07/08/2024 03:49 PM EDT
[2024-06-08] MEDS: gadobutroL 10 ML VIAL IVPUSH (16:17)
== END 2024-06-08 14:46 | disposition home or self-care (01) ==
LOC: HO.MRI 14:45
PROVIDERS: PCP Internal Medicine; Visit Provider Advanced Practice Midwife
DX: R10.2 Pelvic and perineal pain (principal); R93.5 Abnormal findings on diagnostic imaging of other abdominal regions, including retroperitoneum; N70.11 Chronic salpingitis
CPT/HCPCS: 72197; A9585

== ENCOUNTER 2024-06-29 14:30 | Outpatient (AMB) | payer MEDICARE, MEDICAID, SELFPAY ==
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
[2024-06-29 14:35] VITALS: BP 113/48; PULSE 82; BMI 39.4
== END 2024-06-29 15:35 | disposition home or self-care (01) ==
PROVIDERS: PCP Internal Medicine; Visit Provider Nurse Practitioner
DX: K21.9 Gastro-esophageal reflux disease without esophagitis (principal); R13.10 Dysphagia, unspecified; J38.7 Other diseases of larynx; E85.9 Amyloidosis, unspecified
CPT/HCPCS: 99203

== ENCOUNTER → 2024-06-29 14:30 | Outpatient (BNVA) | payer MEDICARE, MEDICAID, SELFPAY | PROVIDERS: PCP Internal Medicine; Visit Provider Nurse Practitioner | DX: K21.9 Gastro-esophageal reflux disease without esophagitis (principal); R13.10 Dysphagia, unspecified; J38.7 Other diseases of larynx; E85.9 Amyloidosis, unspecified | CPT/HCPCS: 99202 ==

== ENCOUNTER 2024-07-01 15:41 | Outpatient (REF) | payer MEDICARE, MEDICAID, SELFPAY ==
--- NOTE | ~2024-07-01 | CT_ITS ---
EXAMINATION: CT NECK WITH CONTRAST CLINICAL INFORMATION: Amyloidosis COMPARISON: None TECHNIQUE: Multidetector CT of the neck was performed from the middle cranial fossa to the level of the brooke following administration of 100 mL of Omnipaque-350. Reformatted axial, coronal, and sagittal reformations were reviewed. This CT examination was performed using dose optimization techniques as appropriate, variously including the following: *Automated exposure control *Adjustment of mA and/or kV according to patient size (this includes techniques or standardized protocols for targeted exams where dose is matched to indication/reason for exam; i.e. extremities or head) *Use of iterative reconstruction technique DLP: 400 mGy-cm FINDINGS: There is no mass or abscess identified. No pathologic-appearing lymph nodes are identified. The neck vasculature is normal without intraluminal thrombosis or dissection. The pharyngeal airway and visualized trachea are symmetric without intraluminal mass lesions. The submandibular and parotid glands are normal in appearance. Orbits are normal in appearance. No fractures are identified. Multilevel degenerative changes of the cervical spine, worse at C6-7. The visualized paranasal sinuses, mastoid air cells and middle ear cavities are clear. The visualized brain and lung parenchyma are within normal limits. CT/CT soft tissue neck w IV con IMPRESSION: No enhancing masses, particularly of the larynx and pharynx. Electronically signed by: Miki Finch DO 07/22/2024 01:41 PM EDT
[2024-07-01] MEDS: iohexoL 350 MG/ML 100 ML INFUS..BTL IV (16:18)
[2024-07-02 10:16] LABS: Creatinine POC 1.1 mg/dL (0.5-1.4); GFR POC 55
== END 2024-07-01 15:42 | disposition home or self-care (01) ==
LOC: HO.CT 15:41
PROVIDERS: PCP Internal Medicine; Visit Provider Hospitalist
DX: E85.9 Amyloidosis, unspecified (principal); R06.02 Shortness of breath; J38.7 Other diseases of larynx
CPT/HCPCS: 70491; 82565; Q9967

== ENCOUNTER 2024-07-27 10:06 | Outpatient (REF) | payer MEDICARE, SELFPAY ==
[2024-07-27 14:07] LABS: MANUAL DIFF FLAG NO
[2024-07-27 14:33] LABS: Basophils Percent Auto 0.4 % (0-2); Eosinophils Absolute Auto 0.1 X10*3/uL (0.0-0.4); Eosinophils Percent Auto 2.2 % (0-4); Hematocrit 34.3 % (37.0-47.0); Hemoglobin 11.3 g/dl (12.0-16.0); Imm Gran Abs Auto 0.03 X10*3/uL (0.00-0.03); Imm Gran Pct Auto 0.5 % (0.0-0.4); Lymphocytes Absolute Auto 1.1 X10*3/uL (1.2-4.9); Lymphocytes Percent Auto 20.1 % (20-40); Mean Corpuscular HGB Conc 32.9 g/dl (31.0-35.0); Mean Corpuscular Hemoglobin 30.4 pg (27.0-33.0); Mean Corpuscular Volume 92.2 fL (80.0-98.0); Mean Platelet Volume 11.2 fL (9.4-12.3); Monocytes Absolute Auto 0.4 X10*3/uL (0.1-1.2); Monocytes Percent Auto 6.3 % (2-11); Neutrophils Absolute Auto 3.9 x10*3/uL (2.0-8.3); Neutrophils Percent Auto 70.5 % (45-73); Platelet Count 113 X10*3/uL (160-400); Red Blood Count 3.72 X10*6/uL (4.20-5.50); Red Cell Distribution Width 13.2 % (11.0-16.0); White Blood Count 5.5 X10*3/uL (4.8-10.8)
[2024-07-27 15:43] LABS: Rheumatoid Factor < 13.0 IU/mL (<15.0)
[2024-07-27 15:44] LABS: Alanine Aminotransferase 33 U/L (0-31); Albumin Level 4.5 g/dL (3.5-5.0); Alkaline Phosphatase 103 U/L (39-117); Anion Gap 13 (12-20); Aspartate Amino Transferase 32 U/L (5-31); Bilirubin Total 0.3 mg/dL (0.0-1.0); Blood Urea Nitrogen 36 mg/dL (9-16); Calcium 10.2 mg/dL (8.4-10.2); Carbon Dioxide 26 mmol/L (22-29); Chloride 106 mmol/L (96-108); Estimated Glomerular Filt Rate 32; Glucose Random 99 mg/dL (60-115); Potassium 5.5 mmol/L (3.3-5.1); Sodium 139 mmol/L (135-145); Total Protein 7.6 g/dL (6.5-8.0)
[2024-07-27 15:46] LABS: Free T4 (Free Thyroxine) 0.75 ng/dL (0.71-1.85)
[2024-07-28 14:24] LABS: Anti Nuclear Antibody Screen NEGATIVE (NEGATIVE)
== END 2024-07-27 10:07 | disposition home or self-care (01) ==
LOC: HO.XRAY 10:06
PROVIDERS: PCP Internal Medicine; Visit Provider Nurse Practitioner
DX: I10 Essential (primary) hypertension (principal); E03.9 Hypothyroidism, unspecified; R30.0 Dysuria
CPT/HCPCS: 36415; 80053; 82550; 84439; 84443; 85025; 86038; 86140; 86431

== ENCOUNTER 2024-08-05 09:08 | Outpatient (REF) | payer MEDICARE, SELFPAY ==
--- NOTE | ~2024-08-05 | FL_ITS ---
EXAMINATION: XR FLUOROSCOPY UPPER GI WITH AIR CLINICAL INFORMATION: Reflux. Dysphagia. Amyloidosis COMPARISON: None TECHNIQUE: Fluoroscopic air contrast upper GI examination was performed utilizing standard techniques with thin and thick barium and effervescent granules. Numerous spot images were obtained. FINDINGS: Lateral cine images of the oropharynx and hypopharynx demonstrate a delayed swallow mechanism with normal epiglottic inversion and soft palate elevation. There is excessive pooling of contrast in the vallecula and piriform sinuses. No tracheal penetration, glottic or subglottic aspiration identified. No nasopharyngeal reflux present. Hypopharyngeal structures appear normal without evidence of mass or diverticulum. There was no significant cricopharyngeal achalasia. Dual and single contrast images of the esophagus demonstrate normal caliber, contour, and mucosal pattern. No evidence of stricture, mass, or ulcerations identified. Esophageal peristalsis is moderately disorganized. A small type I hiatal hernia is present. No significant gastroesophageal reflux was seen during the course of the examination and on reflux views. Dual contrast and single contrast images of the stomach demonstrated normal contour and mucosal pattern without evidence of mass, ulceration, or other abnormality. Contrast freely passed into the gastric antrum and duodenal bulb without delay. Single and air-contrast images of the duodenal bulb demonstrate no abnormality. The duodenal sweep has a normal appearance, course, and mucosal fold appearance. There is a second segment duodenal diverticulum. The imaged proximal jejunum has a normal fold pattern and caliber. FLUOROSCOPY TIME: 4 minutes 8 seconds Number of Spot Images: 7 Number of Cine: 16 DOSE AREA PRODUCT: 3171 uGy-m2 (microgray-meter squared) FL/FL barium swallow with air IMPRESSION: 1. Delayed swallow mechanism with excessive pooling of contrast in the vallecula and piriform sinuses. No laryngeal penetration or subglottic aspiration was observed. 2. Moderately disorganized esophageal peristalsis. 3. Small type I hiatal hernia. 4. Second segment duodenal diverticulum. This procedure was performed by Derrick Cooper PA-C, and supervised by Dr. Kelly Electronically signed by: Kong Kelly MD 08/06/2024 04:59 PM EDT
== END 2024-08-05 09:09 | disposition home or self-care (01) ==
LOC: HO.XRAY 09:08
PROVIDERS: PCP Internal Medicine; Visit Provider Nurse Practitioner
DX: R13.10 Dysphagia, unspecified (principal); K21.9 Gastro-esophageal reflux disease without esophagitis
CPT/HCPCS: 74221

== ENCOUNTER → 2024-08-05 09:09 | Outpatient (BNV) | payer MEDICARE, SELFPAY | PROVIDERS: PCP Internal Medicine; Visit Provider Radiology Diagnostic Radiology | DX: R13.10 Dysphagia, unspecified (principal); K21.9 Gastro-esophageal reflux disease without esophagitis; E85.9 Amyloidosis, unspecified | CPT/HCPCS: 74246 ==

== ENCOUNTER 2024-08-09 14:07 | Outpatient (AMB) | payer MEDICARE, SELFPAY ==
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
== END 2024-08-09 14:47 | disposition home or self-care (01) ==
PROVIDERS: PCP Internal Medicine; Visit Provider Nurse Practitioner Family
DX: N32.81 Overactive bladder (principal); R39.9 Unspecified symptoms and signs involving the genitourinary system; R39.15 Urgency of urination; R35.0 Frequency of micturition; N39.46 Mixed incontinence; Z13.9 Encounter for screening, unspecified
CPT/HCPCS: 99204

== ENCOUNTER → 2024-08-09 14:07 | Outpatient (BNVA) | payer MEDICARE, SELFPAY | PROVIDERS: PCP Internal Medicine; Visit Provider Nurse Practitioner Family | DX: N32.81 Overactive bladder (principal); R35.1 Nocturia; N39.46 Mixed incontinence | CPT/HCPCS: 51798; 81003; 99202 ==

== ENCOUNTER 2024-08-10 15:53 | Outpatient (AMB) | payer MEDICARE, SELFPAY ==
[2024-08-10 15:58] VITALS: BP 119/47; PULSE 74; BMI 38.5
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
== END 2024-08-10 16:46 | disposition home or self-care (01) ==
PROVIDERS: PCP Internal Medicine; Visit Provider Nurse Practitioner
DX: K21.9 Gastro-esophageal reflux disease without esophagitis (principal); J38.7 Other diseases of larynx; E85.9 Amyloidosis, unspecified; R13.10 Dysphagia, unspecified; K22.4 Dyskinesia of esophagus
CPT/HCPCS: 99214

== ENCOUNTER → 2024-08-10 15:53 | Outpatient (BNVA) | payer MEDICARE, SELFPAY | PROVIDERS: PCP Internal Medicine; Visit Provider Nurse Practitioner | DX: K21.9 Gastro-esophageal reflux disease without esophagitis (principal); K22.4 Dyskinesia of esophagus; R13.10 Dysphagia, unspecified; J38.7 Other diseases of larynx; E85.9 Amyloidosis, unspecified | CPT/HCPCS: 99212 ==

== ENCOUNTER 2024-08-17 13:56 | Outpatient (REF) | payer MEDICARE, SELFPAY ==
--- NOTE | ~2024-08-17 | US_ITS ---
EXAMINATION: US RETROPERITONEAL COMPLETE (RENAL) CLINICAL INFORMATION: Overactive bladder. COMPARISON: None available. TECHNIQUE: Real-time imaging of the kidneys and bladder. Technically limited study secondary to body habitus. FINDINGS: RIGHT KIDNEY: 11.4 x 4.4 x 5.6 cm (SAG x AP x TRV). The kidney is normal in size, contour, and echogenicity. Renal cortical thickness is normal. No calculi or focal parenchymal lesions. No hydronephrosis. LEFT KIDNEY: 10.5 x 5.0 x 4.6 cm (SAG x AP x TRV). The kidney is normal in size, contour, and echogenicity. Renal cortical thickness is normal. No calculi or focal parenchymal lesions. No hydronephrosis. BLADDER: Well distended and normal. Bilateral ureteral jets are not demonstrated. Prevoid bladder volume is 151 mL. There is no postvoid residual. US/US retroperitoneal comp IMPRESSION: Normal appearance of the kidneys and bladder.. Electronically signed by: Brett Wilhelm MD 09/22/2024 11:00 AM BARBARA
== END 2024-08-17 13:57 | disposition home or self-care (01) ==
LOC: HO.US 13:56
PROVIDERS: PCP Internal Medicine; Visit Provider Nurse Practitioner Family
DX: N32.81 Overactive bladder (principal)
CPT/HCPCS: 76770

== ENCOUNTER → 2024-08-17 13:58 | Outpatient (BNV) | payer MEDICARE, SELFPAY | PROVIDERS: PCP Internal Medicine; Visit Provider Radiology Diagnostic Radiology | DX: N32.81 Overactive bladder (principal) | CPT/HCPCS: 76770 ==

== ENCOUNTER → 2024-08-24 14:59 | Outpatient (REF) | payer MEDICARE, SELFPAY | LOC: HO.SL 14:59 | PROVIDERS: PCP Internal Medicine; Visit Provider Hospitalist | DX: G47.33 Obstructive sleep apnea (adult) (pediatric) (principal); R06.83 Snoring | CPT/HCPCS: 95806 ==

== ENCOUNTER → 2024-08-24 15:15 | Outpatient (BNV) | payer MEDICARE, SELFPAY | PROVIDERS: PCP Internal Medicine; Visit Provider Internal Medicine | DX: R06.83 Snoring (principal) | CPT/HCPCS: 95806 ==

== ENCOUNTER 2024-09-21 14:22 | Outpatient (AMB) | payer MEDICARE, SELFPAY ==
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
== END 2024-09-21 15:04 | disposition home or self-care (01) ==
LOC: HO.HUSH 14:23
PROVIDERS: PCP Internal Medicine; Visit Provider Nurse Practitioner Family
DX: R39.15 Urgency of urination (principal); R39.9 Unspecified symptoms and signs involving the genitourinary system; N32.81 Overactive bladder; R32 Unspecified urinary incontinence
CPT/HCPCS: 99213; G2211

== ENCOUNTER → 2024-09-21 14:22 | Outpatient (BNVA) | payer MEDICARE, SELFPAY | PROVIDERS: PCP Internal Medicine; Visit Provider Nurse Practitioner Family | DX: R39.15 Urgency of urination (principal); N32.81 Overactive bladder; R32 Unspecified urinary incontinence | CPT/HCPCS: 51798; 81003; 99212 ==

== ENCOUNTER 2024-10-08 13:06 | Outpatient (REF) | payer MEDICARE, SELFPAY ==
[2024-10-08 14:30] LABS: MANUAL DIFF FLAG NO
[2024-10-08 14:34] LABS: Venous Blood Gas Refer to POC result
[2024-10-08 14:35] LABS: VBG Base Excess 0.2 mmol/L; VBG HCO3 25 mmol/L (22-26); VBG pCO2 45 mmHg; VBG pH 7.36 (7.32-7.43); VBG pO2 40 mmHg
[2024-10-08 14:36] LABS: Basophils Percent Auto 0.2 % (0-2); Eosinophils Absolute Auto 0.2 X10*3/uL (0.0-0.4); Eosinophils Percent Auto 2.3 % (0-4); Hematocrit 36.9 % (37.0-47.0); Hemoglobin 12.3 g/dl (12.0-16.0); Imm Gran Abs Auto 0.03 X10*3/uL (0.00-0.03); Imm Gran Pct Auto 0.5 % (0.0-0.4); Lymphocytes Absolute Auto 0.9 X10*3/uL (1.2-4.9); Lymphocytes Percent Auto 14.7 % (20-40); Mean Corpuscular HGB Conc 33.3 g/dl (31.0-35.0); Mean Platelet Volume 10.5 fL (9.4-12.3); Monocytes Absolute Auto 0.4 X10*3/uL (0.1-1.2); Monocytes Percent Auto 6.3 % (2-11); Neutrophils Absolute Auto 4.9 x10*3/uL (2.0-8.3); Platelet Count 143 X10*3/uL (160-400); Red Cell Distribution Width 12.5 % (11.0-16.0); White Blood Count 6.4 X10*3/uL (4.8-10.8)
[2024-10-08 14:52] LABS: Alanine Aminotransferase 47 U/L (0-31); Albumin Level 4.5 g/dL (3.5-5.0); Alkaline Phosphatase 139 U/L (39-117); Anion Gap 14 (12-20); Aspartate Amino Transferase 45 U/L (5-31); Bilirubin Direct 0.1 mg/dL (0.0-0.5); Bilirubin Total 0.3 mg/dL (0.0-1.0); Blood Urea Nitrogen 29 mg/dL (9-16); Calcium 10.1 mg/dL (8.4-10.2); Carbon Dioxide 25 mmol/L (22-29); Chloride 103 mmol/L (96-108); Estimated Glomerular Filt Rate 39; Glucose Random 100 mg/dL (60-115); Potassium 5.5 mmol/L (3.3-5.1); Sodium 136 mmol/L (135-145); Total Protein 7.7 g/dL (6.5-8.0)
[2024-10-08 14:56] LABS: B Type Natriuretic Peptide 20 pg/mL (<100)
[2024-10-08 15:24] LABS: Erythrocyte Sedimentation Rate 23 MM/HR (0-20)
== END 2024-10-08 13:07 | disposition home or self-care (01) ==
LOC: HO.LAB 13:06
PROVIDERS: PCP Internal Medicine; Visit Provider Hospitalist
DX: R06.00 Dyspnea, unspecified (principal); E85.9 Amyloidosis, unspecified; J45.40 Moderate persistent asthma, uncomplicated; K21.9 Gastro-esophageal reflux disease without esophagitis; G47.33 Obstructive sleep apnea (adult) (pediatric); U09.9 Post COVID-19 condition, unspecified
CPT/HCPCS: 36415; 80048; 80076; 82803; 83880; 85025; 85652; 99212

== ENCOUNTER 2024-10-08 13:06 | Outpatient (AMB) | payer MEDICARE, SELFPAY ==
[2024-10-08 13:10] VITALS: BP 140/62; PULSE 82; O2SAT 99; BMI 38.9
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
== END 2024-10-08 13:45 | disposition home or self-care (01) ==
PROVIDERS: PCP Internal Medicine; Visit Provider Hospitalist
DX: E85.9 Amyloidosis, unspecified (principal); R06.02 Shortness of breath; J45.40 Moderate persistent asthma, uncomplicated; K21.9 Gastro-esophageal reflux disease without esophagitis; G47.33 Obstructive sleep apnea (adult) (pediatric); R06.09 Other forms of dyspnea
CPT/HCPCS: 99214; G2211

== ENCOUNTER 2024-10-12 12:57 | Outpatient (AMB) | payer MEDICARE, SELFPAY ==
[2024-10-12 13:06] VITALS: BP 118/66; BMI 39.3
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
== END 2024-10-12 14:57 | disposition home or self-care (01) ==
PROVIDERS: PCP Internal Medicine; Visit Provider Advanced Practice Midwife
DX: R93.89 Abnormal findings on diagnostic imaging of other specified body structures (principal); N83.201 Unspecified ovarian cyst, right side; N70.11 Chronic salpingitis; Z71.2 Person consulting for explanation of examination or test findings
CPT/HCPCS: 99213

== ENCOUNTER → 2024-10-12 12:57 | Outpatient (BNVA) | payer MEDICARE, SELFPAY | PROVIDERS: PCP Internal Medicine; Visit Provider Advanced Practice Midwife | DX: R93.89 Abnormal findings on diagnostic imaging of other specified body structures (principal); N83.201 Unspecified ovarian cyst, right side; N70.11 Chronic salpingitis; Z71.2 Person consulting for explanation of examination or test findings | CPT/HCPCS: 99212 ==

== ENCOUNTER 2025-03-18 10:19 | Outpatient (REF) | payer MEDICARE, MEDICAID, SELFPAY ==
[2025-03-18 11:52] LABS: MANUAL DIFF FLAG NO
[2025-03-18 12:31] LABS: Basophils Percent Auto 0.2 % (0-2); Eosinophils Absolute Auto 0.1 X10*3/uL (0.0-0.4); Eosinophils Percent Auto 2.7 % (0-4); Hematocrit 35.3 % (37.0-47.0); Hemoglobin 11.6 g/dl (12.0-16.0); Imm Gran Abs Auto 0.02 X10*3/uL (0.00-0.03); Imm Gran Pct Auto 0.4 % (0.0-0.4); Lymphocytes Percent Auto 18.6 % (20-40); Mean Corpuscular HGB Conc 32.9 g/dl (31.0-35.0); Mean Corpuscular Volume 91.2 fL (80.0-98.0); Mean Platelet Volume 11.2 fL (9.4-12.3); Monocytes Absolute Auto 0.3 X10*3/uL (0.1-1.2); Monocytes Percent Auto 5.7 % (2-11); Neutrophils Absolute Auto 3.8 x10*3/uL (2.0-8.3); Neutrophils Percent Auto 72.4 % (45-73); Platelet Count 124 X10*3/uL (160-400); Red Blood Count 3.87 X10*6/uL (4.20-5.50); Red Cell Distribution Width 13.2 % (11.0-16.0); White Blood Count 5.2 X10*3/uL (4.8-10.8)
[2025-03-18 12:43] LABS: Alanine Aminotransferase 44 U/L (0-31); Albumin Level 4.4 g/dL (3.5-5.0); Alkaline Phosphatase 111 U/L (39-117); Anion Gap 12 (12-20); Aspartate Amino Transferase 43 U/L (5-31); Bilirubin Total 0.5 mg/dL (0.0-1.0); Blood Urea Nitrogen 17 mg/dL (9-16); Calcium 9.7 mg/dL (8.4-10.2); Carbon Dioxide 27 mmol/L (22-29); Chloride 107 mmol/L (96-108); Cholesterol 211 mg/dL (<200); Estimated Glomerular Filt Rate 40; Glucose Random 94 mg/dL (60-115); HDL Cholesterol 46 mg/dL (>40); LDL Cholesterol Calculated 128 mg/dL (<100); Potassium 5.1 mmol/L (3.3-5.1); Sodium 141 mmol/L (135-145); Total Protein 7.4 g/dL (6.5-8.0); Triglycerides 185 mg/dL (<150)
[2025-03-18 12:57] LABS: TSH reflex Free T4 0.54 uIU/mL (0.32-4.0)
== END 2025-03-18 10:20 | disposition home or self-care (01) ==
LOC: HO.LAB 10:19
PROVIDERS: PCP Internal Medicine; Visit Provider Nurse Practitioner Family
DX: E85.9 Amyloidosis, unspecified (principal); U09.9 Post COVID-19 condition, unspecified; D61.818 Other pancytopenia; G47.33 Obstructive sleep apnea (adult) (pediatric); K21.9 Gastro-esophageal reflux disease without esophagitis; J45.40 Moderate persistent asthma, uncomplicated; R06.02 Shortness of breath; I10 Essential (primary) hypertension; R06.09 Other forms of dyspnea; E78.00 Pure hypercholesterolemia, unspecified
CPT/HCPCS: 36415; 80053; 80061; 84443; 85025; 93005; 99212

== ENCOUNTER 2025-03-18 10:19 | Outpatient (AMB) | payer MEDICARE, SELFPAY ==
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
[2025-03-18 10:26] VITALS: BP 120/54; PULSE 78; BMI 38.3
== END 2025-03-18 10:58 | disposition home or self-care (01) ==
LOC: HO.HCS 10:20
PROVIDERS: PCP Internal Medicine; Visit Provider Nurse Practitioner Family
DX: R06.09 Other forms of dyspnea (principal); I10 Essential (primary) hypertension; E78.00 Pure hypercholesterolemia, unspecified; E85.9 Amyloidosis, unspecified
CPT/HCPCS: 93010; 99214; G2211

== ENCOUNTER 2025-03-18 13:26 | Outpatient (AMB) | payer MEDICARE, SELFPAY ==
[2025-03-18 13:29] VITALS: BP 146/56; PULSE 80; O2SAT 100; BMI 38.3
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
== END 2025-03-18 13:57 | disposition home or self-care (01) ==
LOC: HO.HPS 13:26
PROVIDERS: PCP Internal Medicine; Visit Provider Hospitalist
DX: E85.9 Amyloidosis, unspecified (principal); R06.02 Shortness of breath; J45.40 Moderate persistent asthma, uncomplicated; K21.9 Gastro-esophageal reflux disease without esophagitis; G47.33 Obstructive sleep apnea (adult) (pediatric); R06.09 Other forms of dyspnea; D61.818 Other pancytopenia; U09.9 Post COVID-19 condition, unspecified
CPT/HCPCS: 99214; G2211

== ENCOUNTER 2025-04-06 09:12 | Outpatient (AMB) | payer MEDICARE, SELFPAY ==
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
[2025-04-06 09:17] VITALS: BP 140/80; PULSE 78; O2SAT 99; BMI 37.8
== END 2025-04-06 09:51 | disposition home or self-care (01) ==
LOC: HO.RHE 09:13
PROVIDERS: PCP Internal Medicine; Visit Provider Student in an Organized Health Care Education/Training Program
DX: E85.9 Amyloidosis, unspecified (principal)
CPT/HCPCS: 99203

== ENCOUNTER → 2025-04-06 09:12 | Outpatient (BNVA) | payer MEDICARE, SELFPAY | PROVIDERS: PCP Internal Medicine; Visit Provider Student in an Organized Health Care Education/Training Program | DX: E85.9 Amyloidosis, unspecified (principal) | CPT/HCPCS: 99202 ==

== ENCOUNTER → 2025-04-15 10:44 | Outpatient (BNV) | payer MEDICARE, SELFPAY | PROVIDERS: PCP Internal Medicine; Referring Provider Internal Medicine; Visit Provider Internal Medicine | DX: D61.818 Other pancytopenia (principal) | CPT/HCPCS: 99204; G2211 ==

== ENCOUNTER 2025-04-27 14:46 | Outpatient (AMB) | payer MEDICARE, MEDICAID, SELFPAY ==
[2025-04-27 15:17] VITALS: BP 122/70; PULSE 87; TEMP 36.6; O2SAT 98; BMI 37.8
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
== END 2025-04-27 15:44 | disposition home or self-care (01) ==
LOC: HO.HMCHD 14:46
PROVIDERS: PCP Internal Medicine; Visit Provider Internal Medicine
DX: R42 Dizziness and giddiness (principal)

== ENCOUNTER → 2025-04-27 14:46 | Outpatient (BNVA) | payer MEDICARE, MEDICAID, SELFPAY | PROVIDERS: PCP Internal Medicine; Visit Provider Internal Medicine | DX: R42 Dizziness and giddiness (principal); R06.02 Shortness of breath; D64.9 Anemia, unspecified; E85.9 Amyloidosis, unspecified; N70.11 Chronic salpingitis | CPT/HCPCS: 96127; 99202 ==

== ENCOUNTER 2025-06-09 13:30 | Outpatient (RCR) | payer MEDICARE, MEDICAID, SELFPAY | END 2025-07-14 10:08 | disposition home or self-care (01) | LOC: HO.PR 13:30 | PROVIDERS: PCP Internal Medicine; Visit Provider Hospitalist | DX: U09.9 Post COVID-19 condition, unspecified (principal) | CPT/HCPCS: 94618; 99212; G0237; G0239 ==

== ENCOUNTER 2025-06-10 10:01 | Outpatient (REF) | payer MEDICARE, MEDICAID, SELFPAY ==
--- NOTE | ~2025-06-10 | US_ITS ---
EXAMINATION: US ABDOMEN HISTORY: Thrombocytopenia,? Hepatosplenomegaly TECHNIQUE: Real-time grayscale ultrasound imaging of the abdomen was performed and images were reviewed. COMPARISON: Correlation is made with a retroperitoneal ultrasound dated 08/17/2024. FINDINGS: Liver: The right lobe of the liver measures 16.6 cm in size. The left lobe of the liver measures 12.7 cm in size. The liver demonstrates increased echotexture, consistent with steatosis. No focal mass or intrahepatic biliary ductal dilatation is identified. There is normal hepatopedal flow in the portal vein. Gallbladder and biliary tree: There are numerous shadowing calculi in the gallbladder. There is no wall thickening or pericholecystic fluid. There is no sonographic Gleason sign. The common bile duct is normal in caliber measuring 4 mm. Kidneys: The right kidney measures 13.3 cm in length. The left kidney measures 10.1 cm in length. The kidneys are unremarkable, without evidence of masses, hydronephrosis, or calculi. Pancreas: The pancreatic head, neck, and body are unremarkable. The pancreatic tail is obscured by bowel gas. Spleen: The spleen is normal in size and contour, measuring 12.8 cm in length. Abdominal aorta and inferior vena cava: The visualized portions of the abdominal aorta and inferior vena cava are normal in caliber. There is no free fluid in the abdomen. US/US abdomen complete IMPRESSION: 1. Hepatosplenomegaly and hepatic steatosis. 2. Cholelithiasis. Electronically signed by: Jose Denney MD 06/10/2025 10:36 AM EDT
== END 2025-06-10 10:02 | disposition home or self-care (01) ==
LOC: HO.US 10:01
PROVIDERS: Visit Provider Internal Medicine
DX: D61.818 Other pancytopenia (principal)
CPT/HCPCS: 76700

== ENCOUNTER → 2025-06-10 10:02 | Outpatient (BNV) | payer MEDICARE, MEDICAID, SELFPAY | PROVIDERS: Visit Provider Radiology Diagnostic Radiology | DX: R16.2 Hepatomegaly with splenomegaly, not elsewhere classified (principal) | CPT/HCPCS: 76700 ==

== ENCOUNTER 2025-08-02 08:05 | Outpatient (AMB) | payer MEDICARE, MEDICAID, SELFPAY ==
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
[2025-08-02 08:12] VITALS: BP 118/62; PULSE 80; RESP 20; TEMP 36.8; O2SAT 98; BMI 36.1
== END 2025-08-02 08:49 | disposition home or self-care (01) ==
LOC: HO.HMCHD 08:06
PROVIDERS: PCP Student in an Organized Health Care Education/Training Program; Visit Provider Student in an Organized Health Care Education/Training Program
DX: I12.9 Hypertensive chronic kidney disease with stage 1 through stage 4 chronic kidney disease, or unspecified chronic kidney disease (principal); N18.4 Chronic kidney disease, stage 4 (severe); E85.9 Amyloidosis, unspecified; F41.8 Other specified anxiety disorders; E78.00 Pure hypercholesterolemia, unspecified; G56.00 Carpal tunnel syndrome, unspecified upper limb; L98.9 Disorder of the skin and subcutaneous tissue, unspecified

== ENCOUNTER → 2025-08-02 08:05 | Outpatient (BNVA) | payer MEDICARE, MEDICAID, SELFPAY | PROVIDERS: Visit Provider Student in an Organized Health Care Education/Training Program | DX: F41.8 Other specified anxiety disorders (principal); E78.00 Pure hypercholesterolemia, unspecified; G56.00 Carpal tunnel syndrome, unspecified upper limb; E85.9 Amyloidosis, unspecified; L98.9 Disorder of the skin and subcutaneous tissue, unspecified; I12.9 Hypertensive chronic kidney disease with stage 1 through stage 4 chronic kidney disease, or unspecified chronic kidney disease; N18.4 Chronic kidney disease, stage 4 (severe); Z79.899 Other long term (current) drug therapy | CPT/HCPCS: 99212 ==

== ENCOUNTER 2025-08-18 14:48 | Outpatient (AMB) | payer MEDICARE, MEDICAID, SELFPAY ==
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
[2025-08-18 15:05] VITALS: BP 122/60; PULSE 93; O2SAT 98; BMI 34.6
== END 2025-08-18 15:51 | disposition home or self-care (01) ==
LOC: HO.HKA 14:48
PROVIDERS: PCP Student in an Organized Health Care Education/Training Program; Referring Provider Student in an Organized Health Care Education/Training Program; Visit Provider Internal Medicine Hypertension Specialist
DX: N18.9 Chronic kidney disease, unspecified (principal)
CPT/HCPCS: 99204

== ENCOUNTER 2025-08-18 14:48 | Outpatient (REF) | payer MEDICARE, MEDICAID, SELFPAY ==
[2025-08-18 16:39] LABS: MANUAL DIFF FLAG NO
[2025-08-18 17:29] LABS: Hematocrit 38.5 % (37.0-47.0); Hemoglobin 12.5 g/dl (12.0-16.0); Imm Gran Abs Auto 0.02 X10*3/uL (0.00-0.03); Imm Gran Pct Auto 0.3 % (0.0-0.4); Lymphocytes Absolute Auto 1.4 X10*3/uL (1.2-4.9); Mean Corpuscular HGB Conc 32.5 g/dl (31.0-35.0); Mean Corpuscular Hemoglobin 29.2 pg (27.0-33.0); Mean Corpuscular Volume 90.0 fL (80.0-98.0); NRBC Abs Auto 0.000 X10*3/uL (0.0-0.012); NRBC Pct Auto 0.0 /100WBC (0.0-0.2); Platelet Count 169 X10*3/uL (160-400); Red Blood Count 4.28 X10*6/uL (4.20-5.50); White Blood Count 7.9 X10*3/uL (4.8-10.8)
[2025-08-18 17:49] LABS: Alanine Aminotransferase 33 U/L (0-31); Albumin Level 5.0 g/dL (3.5-5.0); Alkaline Phosphatase 122 U/L (39-117); Anion Gap 15 (12-20); Aspartate Amino Transferase 41 U/L (5-31); Blood Urea Nitrogen 37 mg/dL (9-16); Calcium 10.1 mg/dL (8.4-10.2); Carbon Dioxide 27 mmol/L (22-29); Chloride 104 mmol/L (96-108); Estimated Glomerular Filt Rate 30; Potassium 4.9 mmol/L (3.3-5.1); Sodium 141 mmol/L (135-145); Total Protein 8.1 g/dL (6.5-8.0)
[2025-08-18 17:51] LABS: Appearance Urine Cloudy; Glucose Urine UA Negative (Negative); PH 5.0 (5.0-9.0); Specific Gravity - Urine 1.015 (1.005-1.025); UMIC TRIGGER UA YES
[2025-08-18 18:07] LABS: Total Protein Urine Random 15 mg/dL (<12)
== END 2025-08-18 14:49 | disposition home or self-care (01) ==
LOC: HO.LAB 14:48
PROVIDERS: PCP Student in an Organized Health Care Education/Training Program; Referring Provider Student in an Organized Health Care Education/Training Program; Visit Provider Internal Medicine Hypertension Specialist
DX: I12.9 Hypertensive chronic kidney disease with stage 1 through stage 4 chronic kidney disease, or unspecified chronic kidney disease (principal); N18.9 Chronic kidney disease, unspecified; N17.9 Acute kidney failure, unspecified; E87.5 Hyperkalemia; G62.9 Polyneuropathy, unspecified; Z79.1 Long term (current) use of non-steroidal anti-inflammatories (NSAID); F41.9 Anxiety disorder, unspecified
CPT/HCPCS: 36415; 80053; 81001; 82570; 84156; 85025; 99202

== ENCOUNTER 2025-09-06 14:50 | Outpatient (REF) | payer MEDICARE, MEDICAID, SELFPAY ==
[2025-09-06 18:18] LABS: Anion Gap 15 (12-20); Blood Urea Nitrogen 23 mg/dL (9-16); Calcium 9.7 mg/dL (8.4-10.2); Carbon Dioxide 23 mmol/L (22-29); Chloride 107 mmol/L (96-108); Estimated Glomerular Filt Rate 31; Potassium 5.2 mmol/L (3.3-5.1); Sodium 140 mmol/L (135-145)
== END 2025-09-06 14:51 | disposition home or self-care (01) ==
LOC: HO.LAB 14:50
PROVIDERS: PCP Internal Medicine Hypertension Specialist; Visit Provider Nurse Practitioner Family
DX: N32.81 Overactive bladder (principal); N39.46 Mixed incontinence; R35.0 Frequency of micturition; N18.9 Chronic kidney disease, unspecified
CPT/HCPCS: 36415; 51798; 80048; 99212

== ENCOUNTER 2025-09-06 14:50 | Outpatient (AMB) | payer MEDICARE, MEDICAID, SELFPAY ==
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
== END 2025-09-06 16:02 | disposition home or self-care (01) ==
LOC: HO.HUSH 14:51
PROVIDERS: Visit Provider Nurse Practitioner Family
DX: R39.9 Unspecified symptoms and signs involving the genitourinary system (principal); R35.0 Frequency of micturition; R32 Unspecified urinary incontinence; N32.81 Overactive bladder; R39.15 Urgency of urination; N39.46 Mixed incontinence
CPT/HCPCS: 99214

== ENCOUNTER 2025-09-12 13:27 | Outpatient (AMB) | payer MEDICARE, MEDICAID, SELFPAY ==
[2025-09-12 13:29] VITALS: BP 126/60; PULSE 81; O2SAT 97; BMI 33.8
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
== END 2025-09-12 14:02 | disposition home or self-care (01) ==
LOC: HO.HKA 13:28
PROVIDERS: PCP Student in an Organized Health Care Education/Training Program; Visit Provider Internal Medicine Hypertension Specialist
DX: N18.9 Chronic kidney disease, unspecified (principal)
CPT/HCPCS: 99214

== ENCOUNTER → 2025-09-12 13:27 | Outpatient (BNVA) | payer MEDICARE, MEDICAID, SELFPAY | PROVIDERS: PCP Student in an Organized Health Care Education/Training Program; Visit Provider Internal Medicine Hypertension Specialist | DX: E87.6 Hypokalemia (principal); N18.9 Chronic kidney disease, unspecified; I10 Essential (primary) hypertension; R19.7 Diarrhea, unspecified | CPT/HCPCS: 99212 ==

== ENCOUNTER 2025-10-12 14:17 | Outpatient (AMB) | payer MEDICARE, MEDICAID, SELFPAY ==
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
[2025-10-12 14:23] VITALS: BP 134/57; PULSE 78; BMI 33.4
== END 2025-10-12 15:25 | disposition home or self-care (01) ==
LOC: HO.HGI 14:18
PROVIDERS: PCP Student in an Organized Health Care Education/Training Program; Visit Provider Nurse Practitioner
DX: K21.9 Gastro-esophageal reflux disease without esophagitis (principal); R19.7 Diarrhea, unspecified; K80.20 Calculus of gallbladder without cholecystitis without obstruction; R63.4 Abnormal weight loss
CPT/HCPCS: 99214

== ENCOUNTER → 2025-10-12 14:17 | Outpatient (BNVA) | payer MEDICARE, MEDICAID, SELFPAY | PROVIDERS: PCP Student in an Organized Health Care Education/Training Program; Visit Provider Nurse Practitioner | DX: K21.9 Gastro-esophageal reflux disease without esophagitis (principal); R19.7 Diarrhea, unspecified; K80.20 Calculus of gallbladder without cholecystitis without obstruction; R63.4 Abnormal weight loss; N18.4 Chronic kidney disease, stage 4 (severe); Z68.33 Body mass index [BMI] 33.0-33.9, adult; Z79.899 Other long term (current) drug therapy | CPT/HCPCS: 99212 ==